=== PATIENT | female | born 1960 | race Caucasian/White ===

== ENCOUNTER 2018-01-29 11:47 | Emergency (ER) | payer BC, MEDICARE ==
[~2018-01-29] VITALS: Ht 157.5 cm; Wt 36.4 kg
[2018-01-29 12:38] VITALS: BP 145/90; PULSE 90; TEMP 98.1
== END 2018-01-29 12:38 | disposition home or self-care (01) ==
LOC: COL.ER 11:47
DX: Z44.9 Encounter for fitting and adjustment of unspecified external prosthetic device (principal)

== ENCOUNTER 2018-06-13 10:16 | Outpatient (RCR) | payer BC, MEDICARE ==
[2018-06-13 10:30] VITALS: BP 141/87; PULSE 86; TEMP 97.7
[2018-06-13] MEDS ORDERED: TYLENOL SU650 MG/SUP RC (12:09)
[2018-06-13] MEDS ORDERED: LIORESAL20 MG PO (12:09)
[2018-06-13] MEDS ORDERED: GENTLE LAXATIVE10 MG RC (12:10)
[2018-06-13] MEDS ORDERED: CALCIUM 600600 MG PO (12:11)
[2018-06-13] MEDS ORDERED: COLACE 100100 MG/CAP PO (12:12)
[2018-06-13] MEDS ORDERED: DEBROX OT (12:18)
[2018-06-13] MEDS ORDERED: GOOD SENSE ANTI-IT1% TP (12:20)
[2018-06-13] MEDS ORDERED: IMODIUM 2MG CAPS2 MG PO (12:21)
[2018-06-13] MEDS ORDERED: MERREM IV1 GM IV (12:22)
[2018-06-13] MEDS ORDERED: MAGNESIUM200 MG PO (12:22)
[2018-06-13] MEDS ORDERED: GOOD SENSE400 MG/5 M PO (12:24)
[2018-06-13] MEDS ORDERED: MYLANTA 150 ML150 M1 PO (12:25)
[2018-06-13] MEDS ORDERED: MULTI VITAMINS1 TAB PO (12:25)
[2018-06-13] MEDS ORDERED: ALEVE 220MG220 MG PO (12:26)
[2018-06-13] MEDS ORDERED: NORMAL SALINE F10 ML IV (12:27)
[2018-06-13] MEDS ORDERED: DILANTIN 100MG100 MG PO (12:28)
[2018-06-13] MEDS ORDERED: PROBIOTIC FORMU1 CAP PO (12:29)
[2018-06-13] MEDS ORDERED: SYNTHROID0.175 MG PO (12:30)
[2018-06-13] MEDS ORDERED: ULTRAM 50MG TAB50 MG PO (12:31)
[2018-06-13] MEDS ORDERED: TYLENOL 325MG325 MG PO (12:32)
[2018-06-13] MEDS ORDERED: B-121000 MCG PO (12:33)
[2018-06-13] MEDS ORDERED: EFFEXOR 75M75 MG/TAB PO (12:33)
== END 2018-06-13 12:30 ==
LOC: EUO 10:16
DX: Z45.2 Encounter for adjustment and management of vascular access device (principal); B96.5 Pseudomonas (aeruginosa) (mallei) (pseudomallei) as the cause of diseases classified elsewhere
CPT/HCPCS: C1751

== ENCOUNTER 2018-07-03 16:48 | Inpatient (IN) | payer BC, MEDICARE ==
[~2018-07-03] VITALS: Ht 157.5 cm; Wt 44.4 kg
[~2018-07-03 16:48] MED LIST: ALEVE LIQCAPS PO; B-121000 MCG PO; CALCIUM 600600 MG PO; COLACE 100100 MG/CAP PO; DEBROX OT; DILANTIN 100MG100 MG PO; EFFEXOR 75M75 MG/TAB PO; GENTLE LAXATIVE10 MG RC; GOOD SENSE ANTI-IT1% TP; GOOD SENSE400 MG/5 M PO; IMODIUM A-D2 MG PO; LIORESAL20 MG PO; MAGNESIUM200 MG PO; MERREM IV1 GM IV; MULTI VITAMINS1 TAB PO; MYLANTA 150 ML150 M1 PO; NORMAL SALINE F10 ML IV; PROBIOTIC FORMU1 CAP PO; SYNTHROID0.175 MG PO; TYLENOL 325MG325 MG PO; TYLENOL SU650 MG/SUP RC; ULTRAM 50MG TAB50 MG PO
[2018-07-03 17:26] LABS: BASO # 0.1 (0.0-0.2); BASO % 0.3 % (0.0-2.0); GRAN # 15.2 (1.4-6.5); GRAN % 89.9 % (42.2-75.2); LYMPH # 0.6 (1.2-3.4); LYMPH % 3.3 % (20.0-51.0); MEAN CELL VOLUME 90 fl (80.0-100.0); MEAN CORPUSCULAR HGB CONC 33 g/dl (33.0-37.0); MEAN PLATELET VOLUME 9.6 fl (7.4-10.4); MONO % 5.7 % (1.7-9.3); PLATELET COUNT 253 K/mm3 (130-400); RED BLOOD COUNT 3.34 M/mm3 (4.10-5.30); REDCELL DISTRIBUTION WIDTH-CV 14.4 % (11.5-14.5)
[2018-07-03 17:30] LABS: HEMOGLOBIN 9.8 g/dl (12.5-16.0); MEAN CORPUSCULAR HEMOGLOBIN 29 pg (27.0-31.0)
[2018-07-03 17:31] LABS: HEMATOCRIT 30.2 % (37.0-47.0)
[2018-07-03 17:39] LABS: ALBUMIN 3.8 gm/dL (3.5-5.0); BILIRUBIN,TOTAL 0.4 mg/dL (0.0-1.0); CALCIUM 9.6 mg/dL (8.4-10.2); CREATININE, serum 0.4 (0.52-1.25); POTASSIUM 4.2 mmol/L (3.4-5.0)
[2018-07-03 17:51] LABS: C-REACTIVE PROTEIN 16.9 mg/dL (0.0-0.9)
[2018-07-03 18:02] LABS: COLLECTION METHOD CATHETER
[2018-07-03 18:18] LABS: AMORPHOUS CRYSTAL Present /uL; MUCOUS Present /lpf; PH 7 (5-8); URINE APPEARANCE Cloudy; URINE BACTERIA None Seen /hpf; URINE BILIRUBIN Negative (NEGATIVE); URINE BLOOD 2+ (NEGATIVE); URINE COLOR Amber; URINE GLUCOSE Negative (NEGATIVE); URINE KETONE Negative (NEGATIVE); URINE LEUKOCYTE ESTERASE 3+ (NEGATIVE); URINE NITRATE Positive (NEGATIVE); URINE PROTEIN(semi-quant) 2+ (NEGATIVE); URINE RBC >50 /hpf; URINE UROBILINOGEN Negative (NEGATIVE)
[2018-07-03 19:27] LABS: PHENYTOIN (DILANTIN) 9.6 ug/mL (10.0-20.0)
[2018-07-03 19:38] LABS: PHOSPHOROUS 3.8 mg/dL (2.5-4.5)
--- NOTE | 2018-07-03 20:40 | NUR ---
Patient arrived to medical floor room 315 from ER.
[2018-07-03 20:45] VITALS: BP 98/57; PULSE 110; TEMP 98.7
[2018-07-03 21:10] VITALS: BP 98/57; PULSE 110; TEMP 98.7
[2018-07-03] MEDS ORDERED: AMOXICILLIN 8751 TAB PO (21:15)
[2018-07-03] MEDS ORDERED: DIFLUCAN150 MG PO (21:20)
[2018-07-03] MEDS ORDERED: IPRATROPIUM BROM3 M1 IH (21:24)
[2018-07-03] MEDS ORDERED: NYSTATIN POWDER15 GM TOP (21:28)
--- NOTE | 2018-07-03 22:00 | NUR ---
Medication reconciliation completed based off of paperwork from [facility]. Called and spoke with nurse at [facility] wroten house to ensure accuracy and get last date and time of all medications. Patient assessed around 2200. Denied having pain and discomfort. Alert and oriented x 4, and able to make needs known using soft touch call light. Voiced no needs or concerns. Suprapubic catheter present, draining cloudy, yellow urine. Pressure ulcer to left buttock, dressing CDI. Encouraged to elevate HOB due to occasional cough, but declined. Peripheral IV to left hand.
[2018-07-03 23:48] VITALS: BP 118/65; PULSE 121; TEMP 101.7
[2018-07-04 04:00] VITALS: BP 99/57; PULSE 102; TEMP 98.9
--- NOTE | 2018-07-04 04:59 | NUR ---
Patient has been resting in bed with eyes closed most of the night since arriving from ER. Patient had a temperature of 101.7. Order received for PRN APAP, and was given it around 0030. Temperature has decreased to 98.9. Patient complained of pain around 0230, and was given PRN Ultram, which was effective. NS running at 75 ml/hr to peripheral IV to left hand. Suprapubic catheter patent, and draining cloudy yellow urine via dependent drainage. Patient seems to be having difficulty swallowing, even with HOB elevated 90 degrees. Spoke with STRAND GALVANIZER, and order received for ST to eval and treat. Staff continues to provide repositioning every 2 hours. Voices no other needs or concerns at this time. Resting in bed with eyes closed at this time. Soft-touch call light is next to head as requested, and is able to use call light successfully where it is placed. Order for SCDs. Patient does not want to wear SCDs at this time. Patient has on prevalon heel protectors from [facility].
[2018-07-04 07:22] LABS: BASO % 0.3 % (0.0-2.0); EOS # 0.1 (0.0-0.7); EOS % 1.4 % (0-4.0); GRAN # 8.7 (1.4-6.5); LYMPH # 0.6 (1.2-3.4); LYMPH % 5.3 % (20.0-51.0); MEAN CELL VOLUME 93 fl (80.0-100.0); MEAN CORPUSCULAR HGB CONC 31 g/dl (33.0-37.0); MONO # 0.9 (0.1-0.6); MONO % 8.5 % (1.7-9.3); PLATELET COUNT 202 K/mm3 (130-400); RED BLOOD COUNT 2.78 M/mm3 (4.10-5.30); REDCELL DISTRIBUTION WIDTH-CV 14.4 % (11.5-14.5)
[2018-07-04 07:29] LABS: HEMATOCRIT 25.9 % (37.0-47.0); HEMOGLOBIN 8.1 g/dl (12.5-16.0); MEAN CORPUSCULAR HEMOGLOBIN 29 pg (27.0-31.0)
[2018-07-04 07:34] LABS: CALCIUM 8.5 mg/dL (8.4-10.2); CREATININE, serum 0.46 (0.52-1.25); POTASSIUM 3.6 mmol/L (3.4-5.0)
[2018-07-04 08:04] LABS: TSH w REFLEX 0.587 uIU/mL (0.465-4.680)
[2018-07-04 08:18] VITALS: BP 153/96; PULSE 99; TEMP 98.2
--- NOTE | 2018-07-04 08:30 | NUR ---
Assessment complete. Pt laying in bed, A&O x 3. Breath sounds CTAB. BS active x 4. Pt reports pain to left hip 10 out of 10 on pain scale, around the area of the pressure ulcer to left buttock. Ulcer stage II, dressing with slight drainage noted. IVF's infusing per orders through left hand site without s/s of complications. No further needs reported. Call light in reach.
--- NOTE | 2018-07-04 09:33 | NUR ---
Initial visit; Patient in distress and thanked Data Entry for keeping her in her prayers.
--- NOTE | 2018-07-04 10:15 | NUR ---
SW attended clinical rounds to discuss discharge planning. Patient recently moved from [place] to [place] and is currently staying in skilled nursing care at [facility]. Patient plans to return there when she is discharged. Patient;s mother signed choice form. Patient is seen by Dr Edgar Alvarez at [facility] and they also provide all medications. Patient is non ambulatory. Patient does have advanced directives and SW request copies from [facility]. SW will fax updates to [facility] as well.
--- NOTE | 2018-07-04 10:15 | NUR ---
Dressing to left buttock ulcer removed and new dressing placed with square Aquacell pad. Pt repositioned and pillows placed under both hips. PRN morphine administered at lowest dose of range per pt's request and report of pain at 10 out of 10 on pain scale.
--- NOTE | 2018-07-04 10:35 | NUR ---
Second milligram of Morphine administered d/t pt's pain not being relieved with lower dose.
[2018-07-04 12:30] VITALS: BP 141/86; PULSE 107; TEMP 97.9
[2018-07-04 16:38] VITALS: BP 129/70; PULSE 69; TEMP 99.1
--- NOTE | 2018-07-04 19:04 | NUR ---
Report with SHAMA Hudson. Pt sitting up in bed eating dinner with assistance from her mom, denies needs at this time. Call light in reach.
[2018-07-04 19:14] VITALS: BP 152/84; PULSE 107; TEMP 98.2
--- NOTE | 2018-07-04 20:03 | NUR ---
turned pt at this time. 6/10 pain reported in hips- prn pain meds given
--- NOTE | 2018-07-04 20:30 | NUR ---
pt resting in bed A+Ox4. with family at bedside. reports 07/15 pain- prn meds given. truning Q2 and on request. sacral region covered with dressing- DCI. barrier cream applied. pt had urine leakage- changed breif. pt on RA. heels floated. no needs at this time. call light in reach
--- NOTE | 2018-07-04 20:54 | NUR ---
REPOSITIONED PT AT THIS TIME.
--- NOTE | 2018-07-04 23:08 | NUR ---
pt cried during turning and reposistioning. prn meds given on request. pt currently sleeping. report given to SHAMA
--- NOTE | 2018-07-04 23:45 | NUR ---
ASSUMED CARE FOR THIS PT FROM NURSE MEJIAS, PT RESTING IN BED COMFORTABLY, SLOW SPEECH AND SLURRED AT TIMES DUE TO END STAGE MS. PT REQUESTING TO REST AT THIS TIME, WILL CONTINUE TO MONITOR.
[2018-07-05] VITALS (7 sets, daily range): BP systolic 103–155; BP diastolic 65–95; PULSE 58–941; TEMP 97.4–98.1
--- NOTE | 2018-07-05 06:32 | NUR ---
PT'S HGB DROP FROM 11.5 TO 9.5, WILL PASS IT ALONG IN REPODRT TO DAY SHIFT NURSE.
[2018-07-05 07:03] LABS: BASO % 0.3 % (0.0-2.0); EOS # 0.6 (0.0-0.7); EOS % 9.2 % (0-4.0); GRAN # 4.9 (1.4-6.5); GRAN % 70.1 % (42.2-75.2); LYMPH # 0.6 (1.2-3.4); LYMPH % 8.8 % (20.0-51.0); MEAN CELL VOLUME 93 fl (80.0-100.0); MEAN CORPUSCULAR HGB CONC 32 g/dl (33.0-37.0); MEAN PLATELET VOLUME 9.8 fl (7.4-10.4); MONO # 0.8 (0.1-0.6); MONO % 11.3 % (1.7-9.3); PLATELET COUNT 203 K/mm3 (130-400); RED BLOOD COUNT 2.65 M/mm3 (4.10-5.30); REDCELL DISTRIBUTION WIDTH-CV 14.4 % (11.5-14.5)
[2018-07-05 07:14] LABS: HEMATOCRIT 24.7 % (37.0-47.0); HEMOGLOBIN 7.8 g/dl (12.5-16.0); MEAN CORPUSCULAR HEMOGLOBIN 29 pg (27.0-31.0)
[2018-07-05 07:26] LABS: CALCIUM 8.6 mg/dL (8.4-10.2); CREATININE, serum 0.37 (0.52-1.25); POTASSIUM 3.9 mmol/L (3.4-5.0)
--- NOTE | 2018-07-05 07:37 | NUR ---
Report from Carley SESAY.
[2018-07-05 08:38] LABS: RETIC # 0.06 M/mm3 (0.02-0.16); RETIC % 2.4 % (0.5-3.52)
--- NOTE | 2018-07-05 09:49 | NUR ---
ASSISTED PT TO SITT UP IN BED WITH PILLOW BEHIND HEAD. PT HARD TO UNDERSTAND WITH ADVANCED MS. POSITIONED FOR COMFORT. ORDERED TOAST PER PT REQUEST. SPEECH THERAPY IN ROOM ASSISTING WITH EATING AT THIS TIME.
--- NOTE | 2018-07-05 10:23 | NUR ---
SW attended clinical rounds. Patient will likely be here through the weekend. SW will fax updates to [facility]. [facility] Care Nurse will also meet with patient.
--- NOTE | 2018-07-05 10:37 | NUR ---
CONSULTED DR IVY RECIEVED INSTRUCTIONS ON REPLACING SUPRAPUBIC CATHETER.
--- NOTE | 2018-07-05 12:11 | NUR ---
Initial visit; Patient, her mother and friend welcomed Bog Worker and thanked her for looking in on Kary again and keeping her in Bog Worker's prayers.
--- NOTE | 2018-07-05 12:28 | NUR ---
Met with pt and then pt's mother. Pt is very frustrated with her situation but does not see a way out. She is able to speak for short time, a few words, and then looses her breath support. She did become tearful and advise this process description writer that she does not want to live 20 more years like this. Family meeting is set for July 08 at 2pm.
--- NOTE | 2018-07-05 14:41 | NUR ---
ULTRA SOUND RETURNED TO [employer] IMAGES.
--- NOTE | 2018-07-05 14:51 | NUR ---
Family has now requested to cancel family meeting on Sunday as per mother, they want everything done for her and that is her wish also. This information was relayed to Dr Jean and he will still go ahead, as requested earlier, and talk with , Ed, by phone at the number the family provided.
--- NOTE | 2018-07-05 16:30 | NUR ---
SUPRAPUBIC CATHETER CHANGED REPLACED WITH 18 FR INSTILLED 5 MLS NS IN BALLOON. ASSISTED BY ELLIOT SESAY. PT TOLERATED WELL.
--- NOTE | 2018-07-05 19:30 | NUR ---
pt reposistioned at this time. soft touch call light in reach. mother at bedside.
--- NOTE | 2018-07-05 20:17 | NUR ---
pt resting in bed with mother at bedside. pt crying and reporting pain 10/10 in hips. reposistioned at this time. hopson draining well- yellow urine with sediment noted. heel protectors on. IV flused well, no redness, no swelling. pt on room air. shift assessment complete. no SOA. no needs at this time. call light in reach.
--- NOTE | 2018-07-06 02:24 | NUR ---
REPOSISTIONING Q2H AND UPON REQUEST. DENIED PAIN MEDS AT THIS TIME. BRIEF DRY BUT CHANGED- PROVIDED ELLIE CARE. ALVAREZ DRANING FREELY, NO KINKS. SECURED TO LEG. HEEL PROTECTORS ON. SACREAL STAGE II ULCER DRESSING CHANGED- DRESSING WAS SATURATED. BARRIER CREAM APPLIED TO THE REST OF THE BUTTOX- RED AND FLACKY. SOFT TOUCH CALL LIGHT IN REACH. REPORTS NO NEEDS AT THIS TIEM
--- NOTE | 2018-07-06 05:35 | NUR ---
PT HAD UNEVENTFUL NIGHT. REPORTED PAIN- PRN MEDS GIVEN AND REPOSISTIONED EVERY HOUR AND UPON REQUEST. ALVAREZ DRAINING FREELY, NO KINKS- SECURED TO LEG. YELLOW URINE WITH SEDIMENT NOTED. STAGE II ULCER ON L SACREAL REGION. CHANGED DRESSING. PT ON ROOM AIR. VITALS STABLE. IV FLUSHES WELL NO REDENSS NO SWELLING. PT TOLERATED PO FLUIDS AND ORAL INTAKE. HEELS IN PROTECTORS. PILLOWS UNDER HIP AND REPOSITIONED Q2H. NO NEEDS AT THIS TIME. CALL LIGHT IN REACH
[2018-07-06 06:57] LABS: BASO % 0.5 % (0.0-2.0); EOS # 0.6 (0.0-0.7); EOS % 9.6 % (0-4.0); GRAN % 69.7 % (42.2-75.2); LYMPH # 0.6 (1.2-3.4); LYMPH % 9.8 % (20.0-51.0); MEAN CELL VOLUME 92 fl (80.0-100.0); MEAN CORPUSCULAR HGB CONC 32 g/dl (33.0-37.0); MEAN PLATELET VOLUME 9.4 fl (7.4-10.4); MONO # 0.6 (0.1-0.6); MONO % 10.1 % (1.7-9.3); PLATELET COUNT 226 K/mm3 (130-400); RED BLOOD COUNT 2.77 M/mm3 (4.10-5.30); REDCELL DISTRIBUTION WIDTH-CV 14.2 % (11.5-14.5)
--- NOTE | 2018-07-06 07:03 | NUR ---
report given to SHAMA Goldberg
[2018-07-06 07:04] LABS: HEMATOCRIT 25.6 % (37.0-47.0); HEMOGLOBIN 8.1 g/dl (12.5-16.0); MEAN CORPUSCULAR HEMOGLOBIN 29 pg (27.0-31.0)
[2018-07-06 07:08] LABS: CALCIUM 8.7 mg/dL (8.4-10.2); CREATININE, serum 0.35 (0.52-1.25)
[2018-07-06 07:15] LABS: PRE ALBUMIN 13.5 mg/dL (17.6-36.0)
--- NOTE | 2018-07-06 07:31 | NUR ---
REPORT RECEIVED FROM SHAMA FRANK. PT SLEEPING SOUNDLY IN BED. CALL LIGHT IN REACH.
[2018-07-06 08:01] VITALS: BP 140/78; PULSE 81; TEMP 97.4
--- NOTE | 2018-07-06 08:46 | NUR ---
Pt resting in bed and c/o pain. Pt requested pain med. Call light in reach.
--- NOTE | 2018-07-06 10:23 | NUR ---
Pt c/o pain and asked for pain med. Pt and family educated fast acting IV pain med vs long acting PO pain med. Pt and family agreed to try both to control her pain better. Call light in reach. Pt's mom's visiting in .
--- NOTE | 2018-07-06 11:06 | NUR ---
Visit attempted and pt fell asleep. Call light in reach.
[2018-07-06 12:35] VITALS: BP 114/69; PULSE 83; TEMP 97.6
--- NOTE | 2018-07-06 14:24 | NUR ---
PT C/O L HIP PAIN. PT REPOSITIONED AND PAIN MEDS ADMINISTERED, CALL LIGHT IN REACH
[2018-07-06 16:09] VITALS: BP 113/67; PULSE 78; TEMP 97.5
--- NOTE | 2018-07-06 16:42 | NUR ---
Pt watching a movie with pt's visitor. Pt states pain "manageablea" Call light in reach.
[2018-07-06 17:25] VITALS: TEMP 97.8
--- NOTE | 2018-07-06 17:42 | NUR ---
pt's dressing on her bottom changed after washed with saline water. Pt c/o pain and asked for pain med. Call light in reach.
--- NOTE | 2018-07-06 19:07 | NUR ---
Report given to SHAMA Hudson. Pt sleeping in bed. Call light in reach.
[2018-07-06 19:09] VITALS: BP 136/80; PULSE 84; TEMP 97.9
--- NOTE | 2018-07-06 20:00 | NUR ---
pt resting in bed A+Ox4. reports minimal pain at this time. repositioning Q2H and on request. heel protectors on. sacreal region has a stage II ulcer. dressing dci at this time. top of left foot has a pea size closed sore. iv flushes well, no redness, no swelling. pt on room air. hopson draining freely, no kinks. yellow urine with sediment noted. no needs at this time. call light in reach
--- NOTE | 2018-07-06 20:00 | NUR ---
REPOSITIONED AT THIS TIME
--- NOTE | 2018-07-06 21:39 | NUR ---
REFUSED TO BE REPOSISTIONED AT THIS TIME
[2018-07-06] MEDS ORDERED: MAG-OX 400400 MG/TAB PO (22:04)
[2018-07-06 22:59] VITALS: BP 123/72; PULSE 83; TEMP 98.4
--- NOTE | 2018-07-07 01:53 | NUR ---
pt has had some pain during night, prn meds given. repositioning Q2h and on request. has refused to be reposistioned at time. iv flushes well, no redness, no swelling. no needs at this time- soft touch call light in reach
[2018-07-07 03:54] VITALS: BP 127/79; PULSE 89; TEMP 97.9
--- NOTE | 2018-07-07 04:41 | NUR ---
pt refused to be turned at 0400. reports, "it hurts too bad" offered pain meds- pt refused.
--- NOTE | 2018-07-07 05:37 | NUR ---
PT HAD AN UNEVENTFUL NIGHT. PAIN MEDS GIVEN THROUGOUT NIGHT UPON REQUEST, PT WAS TURNED q2H UNLESS REFUSED. PRESSURE ULCER STAGE II DRESSING DCI AT BEGINNING OF SHIFT. HEEL PROTECTORS ON. SCD REFUSED. TOP OF LEFT FOOT HAS A CLOSED PEA SIZE SORE. PT HAS SOFT TOUCH CALL LIGHT IN REACH. NO NEED AT THIS TIME.
--- NOTE | 2018-07-07 07:23 | NUR ---
REPORT GIVEN TO SHAMA PAUL. PT SLEEPING. REFUSED TO BE TURNED AT THIS TIME.
[2018-07-07 07:48] VITALS: BP 121/68; PULSE 99; TEMP 98.2
--- NOTE | 2018-07-07 08:30 | NUR ---
Assessment complete. Pt resting in bed, A&O x 3. Breath sounds CTAB. BS active x 4. Suprapubic catheter in place, site without s/s of complications. Saline lock IV to left hand without s/s of complications. Stage II ulcer to left buttock with dressing CDI, pillows in place under pt and heels floated. Call light in reach.
[2018-07-07 11:42] VITALS: BP 110/70; PULSE 97; TEMP 98.5
[2018-07-07 15:32] VITALS: BP 116/76; PULSE 96; TEMP 98.6
--- NOTE | 2018-07-07 18:27 | NUR ---
Pt resting in bed, sleeping but arouses easily, denies need for pain medication at this time. Pt requested PRN pain medication x 1 dose this shift. No further needs reported. Call light in reach.
[2018-07-07 19:44] VITALS: BP 146/85; PULSE 80; TEMP 97.8
--- NOTE | 2018-07-07 20:20 | NUR ---
Shift assessment complete. Pt resting in bed, sleepy but easy to wake, a&o, cooperative c cares. Pt c/o pain to hips/buttock, rated "9/10", provided c PRN Campbell per pt req, will use MS per request if pain is not relieved. Pt denies other c/o. INT patent. SP cath noted, draining hazy yellow urine s complication. Pt repositioned et heels floated. Pt denies further needs at this time. Call light in reach, bed alarm on. Will monitor.
[2018-07-07 23:53] VITALS: BP 109/62; PULSE 100; TEMP 98.4
[2018-07-08] VITALS (10 sets, daily range): BP systolic 97–149; BP diastolic 59–91; PULSE 83–127; TEMP 97.6–100.2; O2SAT 96–99
--- NOTE | 2018-07-08 06:04 | NUR ---
Pt resting in bed, condition unchanged. Pt has rested well int this shift. Continued c/o pain to "hips" et buttock ulcer. PRN norco et morphine admin alternating per pt request et continued c/o pain average "06/11/09". Pt has otherwise rested c few needs. No needs at this time. Soft touch call light in reach, bed alarm on.
--- NOTE | 2018-07-08 10:41 | NUR ---
Assessment complete.patient awake,a/ox3.LSCTA.breathing even and unlabored.O2 84% on RA.oxygen administered at 3L/NC and patient stats at 88%.temp 100.2.HR 130s.Doctor Miranda notified.stat CXR,LAbs,ABGs and EKG obtained.patient to be transfered to the ICU.patient's mother at bedside and updated of acute changes.will continue to monitor.call light in reach
--- NOTE | 2018-07-08 11:07 | NUR ---
SW attended clinical rounds. The patient is to transfer down to ICU. LYLE contacted and will fax updates to Miri at [facility]. SW to continue to follow.
[2018-07-08 11:34] LABS: ARTERIAL BLD GAS O2 SATURATION 89.3 % (92-100); ARTERIAL BLD GAS TCO2 CT 29.7; ARTERIAL BLOOD GAS BASE EXCESS 3.8 (-2-2); ARTERIAL BLOOD GAS HCO3 28.4 meq/L (22-26); ARTERIAL BLOOD GAS PO2 56.4 mmHg (80-100); ARTERIAL BLOOD GAS pH 7.44 (7.35-7.45)
--- NOTE | 2018-07-08 11:56 | NUR ---
REPORT RECEIVED FROM DUANE SESAY ON MEDICAL FLOOR.
--- NOTE | 2018-07-08 12:30 | NUR ---
PT TRANSFERRED TO ICU VIA BED TO ICU ROOM 1 BY DUANE SESAY AND JAYA ISLAS. PT AWAKE AND ALERT. PT HAS LIMITED COMMUNICATION D/T ILLNESS AND HX OF ADVANCED MS. PT IN SEVERE PAIN AND IS CRYING STATING SHE IS HAVING SEVERE BACK PAIN. PT'S IV UNINTENTIONALLY CAME OUT UPON TRANSFER TO ICU BED. 22G PERIPHERAL IV INSERTED TO LEFT WRIST FOR PAIN MANAGEMENT. CALLED DR MCCANN TO INQUIRE ABOUT INSERTING PICC LINE D/T POSSIBLE SEPSIS. DR MCCANN IN AGREEANCE OF NECESSITY FOR PICC PLACEMENT. JERED FELTON NURSE CALLED AND NOTIFIED.
--- NOTE | 2018-07-08 12:35 | NUR ---
PT PLACED ON 8L NC UPON TRANSFER TO ICU BED D/T SATURATION OF 82% ON ROOM AIR.
--- NOTE | 2018-07-08 12:38 | NUR ---
REPORT GIVEN TO SHAMA TREJO.PT TRANSPORTED TO ICU ROOM 1 BY BED.FAMILY IN WAITING ROOM.
[2018-07-08 12:55] LABS: BASO # 0.1 (0.0-0.2); BASO % 0.4 % (0.0-2.0); EOS # 0.1 (0.0-0.7); EOS % 0.5 % (0-4.0); GRAN # 18.2 (1.4-6.5); GRAN % 89.8 % (42.2-75.2); LYMPH # 0.7 (1.2-3.4); LYMPH % 3.6 % (20.0-51.0); MEAN CELL VOLUME 91 fl (80.0-100.0); MEAN CORPUSCULAR HGB CONC 32 g/dl (33.0-37.0); MEAN PLATELET VOLUME 8.6 fl (7.4-10.4); MONO % 5.1 % (1.7-9.3)
[2018-07-08 13:06] LABS: HEMOGLOBIN 9.4 g/dl (12.5-16.0); MEAN CORPUSCULAR HEMOGLOBIN 29 pg (27.0-31.0); PLATELET COUNT 368 K/mm3 (130-400)
--- NOTE | 2018-07-08 13:10 | NUR ---
CALLED DR MCCANN REGARDING PT'S WBC COUNT RETURNED AT 10.2. PROVIDER WOULD LIKE PT ON HIGH FLOW NC. RT CALLED AND NOTIFIED.
[2018-07-08 13:14] LABS: ALANINE AMINOTRANSFERASE < 6 U/L (9-52); ALBUMIN 3.3 gm/dL (3.5-5.0); ALKALINE PHOSPHATASE 119 U/L (50-136); ANION GAP 9 mmol/L (7-16); AST,SGOT 34 U/L (15-37); BILIRUBIN,TOTAL 0.4 mg/dL (0.0-1.0); BLOOD UREA NITROGEN 19 mg/dL (7-17); CALCIUM 9.2 mg/dL (8.4-10.2); CARBON DIOXIDE 31 mmol/L (22-30); CHLORIDE 98 mmol/L (98-107); CREATININE, serum 0.35 (0.52-1.25); GLUCOSE 117 mg/dL (74-106); POTASSIUM 3.9 mmol/L (3.4-5.0); SODIUM 138 mmol/L (137-145); TOTAL PROTEIN 7.2 gm/dL (6.4-8.2)
--- NOTE | 2018-07-08 16:00 | NUR ---
Shift assessment complete at this time. Pt denies pain or any discomfort after repositioning to right side. Vitals stable at this time. Bed in low and locked position, will continue to monitor.
--- NOTE | 2018-07-08 19:12 | NUR ---
Bedside report given to SHAMA Corcoran.
--- NOTE | 2018-07-08 19:35 | NUR ---
Patient assessment completed and charted at this time, please see documentation for details. Patient resting in bed, able to follow simple commands, very weak. States she has discomfort, repositioned and she asked for pain medication. No family at bedside, will continue to monitor.
[2018-07-09] VITALS (845 sets, daily range): BP systolic 92–108; BP diastolic 56–71; PULSE 80–99; TEMP 97.5–97.9; O2SAT 91–100
[2018-07-09 05:10] LABS: MEAN CELL VOLUME 93 fl (80.0-100.0); MEAN CORPUSCULAR HGB CONC 32 g/dl (33.0-37.0); MEAN PLATELET VOLUME 9.1 fl (7.4-10.4); RED BLOOD COUNT 2.39 M/mm3 (4.10-5.30); REDCELL DISTRIBUTION WIDTH-CV 13.9 % (11.5-14.5)
[2018-07-09 05:16] LABS: HEMATOCRIT 22.2 % (37.0-47.0); MEAN CORPUSCULAR HEMOGLOBIN 29 pg (27.0-31.0); PLATELET COUNT 252 K/mm3 (130-400)
[2018-07-09 05:24] LABS: ALBUMIN 2.7 gm/dL (3.5-5.0); BILIRUBIN,TOTAL 0.1 mg/dL (0.0-1.0); CALCIUM 8.6 mg/dL (8.4-10.2); CREATININE, serum 0.39 (0.52-1.25); POTASSIUM 4.1 mmol/L (3.4-5.0); TOTAL PROTEIN 6.2 gm/dL (6.4-8.2)
[2018-07-09 05:45] LABS: BAND 43 % (0-10); HYPOCHROMIA 1+; LYMPHOCYTE 3 % (20.0-51.0); METAMYELOCYTE 1 % (0-0); NEUTROPHILS 52 % (42.0-75.2); PLATELET ESTIMATE NORMAL (NORMAL)
--- NOTE | 2018-07-09 07:00 | NUR ---
Bedside report received from SHAMA Corcoran patient repositioned, cleaned and dressing changed to coccyx. Tap call light in place.
--- NOTE | 2018-07-09 08:00 | NUR ---
Assessment complete, bilateral heel protectors in place, AM care performed at this time, tap call light in place by her face.
--- NOTE | 2018-07-09 09:45 | NUR ---
PT in room, working with patient.
--- NOTE | 2018-07-09 09:55 | NUR ---
Follow-up visit; Patient aware of School Psychological Examiner looking in on her. Request for nurse. School Psychological Examiner reported request to nurse.
--- NOTE | 2018-07-09 10:16 | NUR ---
Speech therapy in room working with patient.
--- NOTE | 2018-07-09 12:46 | NUR ---
Patient repositioned for comfort, at bedside. Patient using tap call light.
--- NOTE | 2018-07-09 16:23 | NUR ---
Patient refused turn at this times, states "I am comfortable the way I am." Family at bedside.
--- NOTE | 2018-07-09 19:20 | NUR ---
Assisted to reposition with other staff member. Patient's speech is difficult to understand. Speech is slow and unclear. Need to ask patient frequently to repeat herself. Complaining of pain to the left hip. Attempted to place her in a more comfortable position. Patient also noted to become emotional easily. Appears to be tearful when staff repositions her and when staff must ask her to repeat herself. Will administere PRN pain medication. Addressed all concerns with her before leaving room.
--- NOTE | 2018-07-09 19:37 | NUR ---
Bedside report given to SHAMA Phillips, patient repositioned for comfort.
--- NOTE | 2018-07-09 20:15 | NUR ---
02 90-91% on RA. Placed on 2L NC.
--- NOTE | 2018-07-09 22:00 | NUR ---
Assisted with repositioning and with a bed bath. Dressing to pressure ulcer on coccyx changed at this time. Ulcer is half dollar sized with a moist yellowish wound bed. Adjacent to this on the left buttock is a small reddened abrasion which measures approximately 0.5 cm X 2 cm. Skin around coccyx is reddened and dry and flaky. Will continue with frequent repositioning Q 2hr and as requested per patient.
[2018-07-10] VITALS (48 sets, daily range): BP systolic 90–152; BP diastolic 56–79; PULSE 84–114; TEMP 97.3–98.7; O2SAT 96–100
[2018-07-10 05:19] LABS: BASO % 0.3 % (0.0-2.0); EOS # 0.2 (0.0-0.7); GRAN # 8.7 (1.4-6.5); GRAN % 78.9 % (42.2-75.2); LYMPH # 0.8 (1.2-3.4); LYMPH % 7.1 % (20.0-51.0); MEAN CELL VOLUME 92 fl (80.0-100.0); MEAN CORPUSCULAR HGB CONC 32 g/dl (33.0-37.0); MEAN PLATELET VOLUME 9.2 fl (7.4-10.4); MONO % 9.2 % (1.7-9.3); PLATELET COUNT 314 K/mm3 (130-400); RED BLOOD COUNT 2.25 M/mm3 (4.10-5.30); REDCELL DISTRIBUTION WIDTH-CV 14.4 % (11.5-14.5)
[2018-07-10 05:21] LABS: HEMATOCRIT 20.6 % (37.0-47.0); HEMOGLOBIN 6.5 g/dl (12.5-16.0); MEAN CORPUSCULAR HEMOGLOBIN 29 pg (27.0-31.0)
[2018-07-10 05:31] LABS: CALCIUM 8.3 mg/dL (8.4-10.2); CREATININE, serum 0.37 (0.52-1.25); MAGNESIUM 2.1 mg/dL (1.6-2.3); POTASSIUM 3.6 mmol/L (3.4-5.0)
--- NOTE | 2018-07-10 05:31 | NUR ---
Notified [facility] of patient's critical HGB results. No obvious signs of bleeding noted. Awaiting further orders.
--- NOTE | 2018-07-10 07:45 | NUR ---
Report received from SHAMA Phillips.
--- NOTE | 2018-07-10 08:15 | NUR ---
Assessment completed. Pt watching tv, A/Ox3. Pt c/o pain around hip area. Repositioned pt for comfort. Total assist required for meals. Pt HOB greater than 45 degrees. Tolerating meal, no signs of aspiration. Discussed plan of care with pt r/t blood transfusion for low hgb. Pt verbalized understanding. VSS. Will monitor.
--- NOTE | 2018-07-10 08:33 | NUR ---
PT REFUSING TREATMENT AFTER JUST A COUPLE MINUTES. TREATMENT STOPPED AT THIS TIME. NO DISTRESS NOTED. PT ENCOURAGED TO CALL IF TREATMENT IS NEEDED.
--- NOTE | 2018-07-10 09:10 | NUR ---
Physical therapy at bedside working with pt.
--- NOTE | 2018-07-10 09:35 | NUR ---
Blood transfusion started after pre vitals taken and verified. blood transfusing through purple port in right upper arm PICC.
--- NOTE | 2018-07-10 09:46 | NUR ---
SW attended clinical rounds. Patient will move to the medical floor today. SW will fax updates to [facility].
--- NOTE | 2018-07-10 09:50 | NUR ---
No changes with vital signs. Pt watching tv at this time. Blood transfusion rate increased. VSS.
--- NOTE | 2018-07-10 10:06 | NUR ---
Pt's at bedside. Updated on pt status. Discussed plan of care r/t blood tranfusion. verbalized understanding.
--- NOTE | 2018-07-10 10:20 | NUR ---
Speech therapy at bedside working with pt.
--- NOTE | 2018-07-10 10:45 | NUR ---
Repositioned pt for comfort. Bilat arms have petechiae present. Notified KAYCE Marcus with Dr Jean. Blood transfusion on hold.
--- NOTE | 2018-07-10 10:55 | NUR ---
Dr Jean okay with blood tranfusion still infusing. Dr Jean will order IV benadryl for pt.
--- NOTE | 2018-07-10 11:05 | NUR ---
Report given to Medical floor RN, Cat.
--- NOTE | 2018-07-10 11:46 | NUR ---
Pt transferred to medical floor room 307 via bed. Sarah, medical RN, notified of blood transfusion complete and voicemail left on pt's 's phone of pt transfer. TV turned on for pt and call light in reach by pt's chin.
--- NOTE | 2018-07-10 11:50 | NUR ---
Pt arrived to floor at this time via bed with ICU staff. Resting in bed, placed air mattress on bed and has pillow below knees, under both hips, and arms are also resting on pillows. Heels are floating in boots. SCDs in place. PICC to GILDA. INT to LW. Pt lung sounds diminished. Stage 3 to sacrem. Petechial rash to forearms bilaterally, per ICU nurse this is a new development from blood transfusion. Family has been in to room but not in room at this time. Ordered lunch for patient. Call light on R cheek as she is unable to mobilize any of her extremeties. Will continue to monitor.
[2018-07-10 13:26] LABS: HEMOGLOBIN 8.7 g/dl (12.5-16.0)
[2018-07-10 13:27] LABS: HEMATOCRIT 26.5 % (37.0-47.0)
--- NOTE | 2018-07-10 15:03 | NUR ---
PT REFUSED SVN TX OF 2 MINUTES. STOPPED AT THIS TIME. NO DISTRESS NOTED
--- NOTE | 2018-07-10 18:25 | NUR ---
Pt resting in bed. Fed supper to her, she ate a portion of the meal well, but tires easily. IVF to PICC in GILDA. Pillows and air mattress for comfort. Denies needs. Olson draining clear yellow urine. Call light in reach, will give bedside shift report to nightshift nurse who will resume care.
--- NOTE | 2018-07-10 19:51 | NUR ---
MOTHER OF PT THOUGHT THAT PT LOOKED PALE. CAME INTO ROOM RIGHT-AWAY AND PT IS FAIR SKIN THAT LOOKS PINK IN COLOR. TAKEN VS AND THEY ARE WNL. PT ADVISES THAT SHE FEELS FINE. CALL LIGHT WITHIN REACH.
--- NOTE | 2018-07-10 21:15 | NUR ---
PT IN BED AND FAMILY IN ROOM WITH PT. FAMILY FEELS THAT PT CHOKES WHEN THEY GIVE HER A DRINK OF WATER. TRIED THICKEN LIQUIDS AND PT DOES NOT LIKE THICKEN LIQUIDS. TRIED THIN LIQUIDS USING A SPOON AND PT DID FINE. GAVE PT SOME OF HER ENSURE AND PT DRANK IT FINE. PT DID NOT CHOKE EITHER TIME WHEN I GAVE HER LIQUIDS TO DRINK. ADVISED FAMILY MAYBE THEY ARE GIVING HER TOO MUCH AT ONE TIME. FAMILY ADVISED THAT THEY FEEL BETTER IF THE STAFF GIVES HER SOMETHING TO DRINK AND EAT. GAVE PT MORPHINE FOR PAIN RATED A 7/10 THAT WAS ACHING IN HER SCAPULA. FAMILY THOUGHT PT LOOKED FLUSHED. PT HAD PINK CHEEKS AND PETECHIAE ON BILATERAL UPPER EXTREMITIES. ALSO, BOTH HANDS HAD SOME EDEMA. NO FURTHER NEEDS AT THIS TIME, CALL LIGHT WITHIN REACH.
--- NOTE | 2018-07-11 02:33 | NUR ---
CHECKED ON PT AND PT REFUSES ANY THING TO DRINK OR PAIN MEDICATION. PT ADVISES PAIN AT 4/10 BUT SHE DOES NOT NEED ANY PAIN MEDICATION. PT REPOSITIONED EVERY 2 HOURS. NO NEEDS AT THIS TIME. CALL LIGHT WITHIN REACH.
[2018-07-11 03:00] VITALS: BP 151/74; PULSE 101; TEMP 98.2
--- NOTE | 2018-07-11 05:09 | NUR ---
PT SLEEPING/RESTING AT THIS TIME. PT HAD C/O LEFT SCAPULA PAIN RATED AT 7/10 THAT IS ACHING, GAVE HER MORPHINE AND REPOSITIONED TO HELP RELIEVE PAIN. TRIED A WARM BLANKET BUT PT FELT THAT IT WAS TOO WARM FOR HER AND DID NOT WANT IT. THEREFORE, REMOVED WARM BLANKET RIGHT AWAY. REPOSITIONED PT SEVERAL TIMES BEFORE SHE WAS FINALLY COMFORTABLE ENOUGH TO REST. PT HAS CALL LIGHT WITHIN REACH.
[2018-07-11 06:03] LABS: MEAN CELL VOLUME 92 fl (80.0-100.0); MEAN CORPUSCULAR HGB CONC 32 g/dl (33.0-37.0); MEAN PLATELET VOLUME 8.9 fl (7.4-10.4); PLATELET COUNT 389 K/mm3 (130-400); RED BLOOD COUNT 2.98 M/mm3 (4.10-5.30); REDCELL DISTRIBUTION WIDTH-CV 14.8 % (11.5-14.5)
[2018-07-11 06:07] LABS: HEMATOCRIT 27.4 % (37.0-47.0); HEMOGLOBIN 8.7 g/dl (12.5-16.0); MEAN CORPUSCULAR HEMOGLOBIN 29 pg (27.0-31.0)
[2018-07-11 06:19] LABS: CALCIUM 8.2 mg/dL (8.4-10.2); CREATININE, serum 0.35 (0.52-1.25); POTASSIUM 3.3 mmol/L (3.4-5.0)
[2018-07-11 06:53] LABS: EOSINOPHIL 2 % (0-4); LYMPHOCYTE 5 % (20.0-51.0); NEUTROPHILS 84 % (42.0-75.2); PLATELET ESTIMATE NORMAL (NORMAL)
[2018-07-11 08:00] VITALS: BP 152/78; PULSE 96; TEMP 98.3
--- NOTE | 2018-07-11 09:31 | NUR ---
LYLE attended clinical rounds. The hospitalist discussed the plan of switching the patient back to some of her oral meds. SW to fax updates to [facility] and will continue to follow.
--- NOTE | 2018-07-11 10:07 | NUR ---
Assessment completed, alert/oriented, vital signs stable, SADDLE AND HARNESS MAKER has assisted with breakfast and she did fairly well/ NO signs of aspiration and ST guidlines followed closely, we are turning and changing positiong as often as patient will permit/ she refused to be turned at the last check, pressure ulcer to coccyx is covered with dressing, IV abx infusing, she dneies other needs at this time
[2018-07-11 11:22] VITALS: BP 139/80; PULSE 104; TEMP 98.5
[2018-07-11 15:57] VITALS: BP 154/90; PULSE 102; TEMP 98.4
--- NOTE | 2018-07-11 20:00 | NUR ---
PT IN BED WITH HOB AT 45 DEGREE ANGLE. FAMILY BY SIDE. PT HAS PAIN THAT IS 6/10 ACHING IN LEFT SCAPULA. GAVE NORCO 5/325 MG. CALLED KRISH WILLIS AND SHE ADVISED IT IS OKAY TO GIVE PO MED. BROKE PILL IN HALF AND PT HAD NO DIFFICULTIES SWALLOWING. PT HAS NO FURTHER NEEDS AT THIS TIME, CALL LIGHT WITHIN REACH.
[2018-07-11 20:34] VITALS: BP 138/80; PULSE 102; TEMP 99
[2018-07-11 23:54] VITALS: BP 162/88; PULSE 101; TEMP 98.4
--- NOTE | 2018-07-12 02:45 | NUR ---
PT HAS BEEN ASKED EVERY 2 HOURS OR LESS IF SHE WANTS TO BE REPOSITIONED AND PT REFUSES TO TURN. PT HAS BEEN MOVED IN BED UPWARD OR OVER TO LEFT MORE, ALSO, REPOSITION HANDS OFTEN REQUESTED BY PT. PT HAS MEPILEX ON COCCYX AREA THAT IS CLEAN, DRY, AND INTACT. PT THOUGHT THAT SHE WAS GOING TO HAVE A BOWEL MOVEMENT, BUT HAS NOT YET. PT HAS SUPERPUBIC CATHETER THAT IS DRAINING WITHOUT DIFFICULTY CLEAR YELLOW URINE. PT HAS HAD C/O PAIN, MAINLY IN HER LEFT SCAPULA AREA THAT IS CONSTANT. PT RESTING/SLEEPING AT THIS TIME, CALL LIGHT WITHIN REACH.
[2018-07-12 02:53] VITALS: BP 136/88; PULSE 97; TEMP 98.3
[2018-07-12 06:03] LABS: MEAN CELL VOLUME 92 fl (80.0-100.0); MEAN CORPUSCULAR HGB CONC 32 g/dl (33.0-37.0); MEAN PLATELET VOLUME 8.6 fl (7.4-10.4); PLATELET COUNT 391 K/mm3 (130-400); RED BLOOD COUNT 2.85 M/mm3 (4.10-5.30); REDCELL DISTRIBUTION WIDTH-CV 14.5 % (11.5-14.5)
[2018-07-12 06:04] LABS: HEMATOCRIT 26.2 % (37.0-47.0); HEMOGLOBIN 8.4 g/dl (12.5-16.0); MEAN CORPUSCULAR HEMOGLOBIN 29 pg (27.0-31.0)
[2018-07-12 06:17] LABS: CALCIUM 7.9 mg/dL (8.4-10.2); CREATININE, serum 0.3 (0.52-1.25)
--- NOTE | 2018-07-12 06:20 | NUR ---
CALLED KRISH WILLIS IN REFERENCE TO PT'S POTASSIUM BEING 2.8. KRISH WILLIS ADVISED THAT SHE WILL PUT HER IN FOR THE POTASSIUM PROTOCOL.
[2018-07-12 06:23] LABS: POTASSIUM 2.8 mmol/L (3.4-5.0)
[2018-07-12 07:14] LABS: BASOPHIL 1 % (0-2); EOSINOPHIL 4 % (0-4); LYMPHOCYTE 12 % (20.0-51.0); NEUTROPHILS 79 % (42.0-75.2); PLATELET ESTIMATE NORMAL (NORMAL)
[2018-07-12 07:55] VITALS: BP 157/77; PULSE 100; TEMP 98.1
--- NOTE | 2018-07-12 09:51 | NUR ---
Assessment complete.patient awake,a/ox3.c/o generalised pain.breathing even and unlabored.VSS.pottasium was 2.8,IV pottasium infusing at this time.patient received all meds.stage IV ulcer to coccyx.pt repositioned [id number] and prn.SCDs on.patient denies any needs at this time.call light in reach
[2018-07-12] MEDS ORDERED: CEFEPIME2 GM/100 M IV (11:52)
[2018-07-12] MEDS ORDERED: FERRO-TIME325 MG PO (11:54)
[2018-07-12] MEDS ORDERED: ZYVOX 600MG600 MG PO (11:54)
[2018-07-12 11:55] VITALS: BP 139/84; PULSE 102; TEMP 98.5
[2018-07-12] MEDS ORDERED: MELAT3MGTAB PO (11:58)
[2018-07-12] MEDS ORDERED: PROTONIX 40MG T40 MG PO (11:58)
[2018-07-12 15:27] VITALS: BP 147/84; PULSE 103; TEMP 98.6
--- NOTE | 2018-07-12 19:00 | NUR ---
PT RESTING IN BED AT THIS TIME.PT HAD A LARGE BM TODAY.REMAINS ON CONTACT PRECAUTION FOR MRSA.IVF INFUSING.REPOSITIONED Q2H.PATIENT DENIES ANY NEEDS AT THIS TIME.CALL LIGHT IN REACH
--- NOTE | 2018-07-12 19:02 | NUR ---
REPORT GIVEN TO SHAMA SUNSHINE.
[2018-07-12 19:16] VITALS: BP 138/95; PULSE 113; TEMP 98.5
--- NOTE | 2018-07-12 20:30 | NUR ---
Shift assessment complete. Pt resting in bed, awake, a&o, cooperative c cares. Pt reports chronic pain to hips/legs/buttock, rated 6/10; PRN pain medical recruiter per pt req. Pt denies other c/o at this time. Soft-touch call light in reach, pt demonstrates abiliity to push pad c the side of her face. Bed alarm on, will monitor.
[2018-07-12 23:41] VITALS: BP 118/79; PULSE 94; TEMP 97.7
[2018-07-13 03:03] VITALS: BP 143/83; PULSE 102; TEMP 97.6
--- NOTE | 2018-07-13 06:00 | NUR ---
Pt resting in bed, condition unchanged. Pain well controlled c PRN pain med upon request. Pt req 2t Bend this am. Continued q2 turn. Pt s needs at this time. Soft touch call light in reach.
[2018-07-13 07:12] LABS: BASO # 0.1 (0.0-0.2); BASO % 0.4 % (0.0-2.0); EOS # 0.6 (0.0-0.7); EOS % 4.2 % (0-4.0); GRAN # 10.6 (1.4-6.5); GRAN % 74.6 % (42.2-75.2); LYMPH # 0.9 (1.2-3.4); LYMPH % 6.6 % (20.0-51.0); MEAN CELL VOLUME 93 fl (80.0-100.0); MEAN CORPUSCULAR HGB CONC 32 g/dl (33.0-37.0); MEAN PLATELET VOLUME 8.3 fl (7.4-10.4); MONO # 1.3 (0.1-0.6); MONO % 9.3 % (1.7-9.3); PLATELET COUNT 395 K/mm3 (130-400); RED BLOOD COUNT 2.93 M/mm3 (4.10-5.30); REDCELL DISTRIBUTION WIDTH-CV 14.8 % (11.5-14.5)
[2018-07-13 07:19] LABS: CALCIUM 9.1 mg/dL (8.4-10.2); CREATININE, serum 0.35 (0.52-1.25)
[2018-07-13 07:24] LABS: HEMATOCRIT 27.2 % (37.0-47.0); HEMOGLOBIN 8.7 g/dl (12.5-16.0); MEAN CORPUSCULAR HEMOGLOBIN 30 pg (27.0-31.0)
[2018-07-13 08:26] VITALS: BP 134/79; PULSE 93; TEMP 97.9
[2018-07-13] MEDS ORDERED: ULTRAM 50MG TAB50 MG PO (08:30)
[2018-07-13] MEDS ORDERED: BD POSIFLUSH SF10 ML IV (08:34)
--- NOTE | 2018-07-13 10:09 | NUR ---
Assessment complete.patient awake,a/ox3.denies any pain or discomfort at this time.breathing even and unlabored.LSCTA.VSS.patient is afebrile.PICC to GILDA patent.IVF infusing.repositioned q2h.stage iv ulcer to coccyx.dressing in place.bilat lower extremities has 1+ pitting edema.SCDs on.booties to BLE.pt ate 80% of her breakfast.denies nay other needs at this time.will continue to monitor.call light in reach
[2018-07-13 11:16] VITALS: BP 134/79; PULSE 93; TEMP 97.9
--- NOTE | 2018-07-13 13:48 | NUR ---
PT DISCHARGE TO [facility] AT THIS TIME.ALL DISCHARGE PAPERWORK SENT WITH EMS.PICC DISCONTINUED.HYGIENE PROVIDED.PATIENT DENIES ANY NEEDS.ALL BELONGINGS TAKEN BY EMS.MOTHER ACCOMPANIED PATIENT.
--- NOTE | 2018-07-13 14:38 | NUR ---
CALLED [facility] TO GIVE REPORT AND WAS TOLD THAT PATIENT WAS GOING TO BE SENT BACK TO THE EMERGENCY DEPARTMENT TO GET A PHERIPHERAL LINE STARTED. AND SHAMA CENTENOGEOPHYSICS SCIENTIST NOTIFIED.
--- NOTE | 2018-07-13 15:33 | NUR ---
PATIENT CAME TO ED AND SHAMA CENTENO,LOGISTICS SUPPLY OFFICER STARTED A PERIPHERAL IV AND PATIENT RETURNED TO [facility] IN [facility].THIS RN CALLED REPORT TO SHAMA RIDDLE.NO OTHER NEEDS VOICED.
--- NOTE | 2018-07-13 16:20 | NUR ---
Patient returned to a room in the ER to have INT placed by this nurse. Patient arrived via stretcher; left patient on stretcher. On 2nd attempt placed 20 G to right forearm without difficulty. INT flushed without difficulty. Patient had a small bruise to area of instertion site. Patient tolerated procedure without an s/s of distress noted.
== END 2018-07-13 13:58 | DRG 698 ==
LOC: COL.ER 16:48 → MEDICAL 18:57 → ICU 07-08 12:18 → MEDICAL 07-10 11:22
PROVIDERS: Emergency Medicine; Nurse Practitioner; Physician Assistant; ADMIT Internal Medicine
PROC: 02HV33Z Insertion of Infusion Device into Superior Vena Cava, Percutaneous Approach (ICD-10-PCS; principal; 2018-07-08)
DX: T83.511A Infection and inflammatory reaction due to indwelling urethral catheter, initial encounter (principal); A41.9 Sepsis, unspecified organism; J96.01 Acute respiratory failure with hypoxia; J69.0 Pneumonitis due to inhalation of food and vomit; N39.0 Urinary tract infection, site not specified; G35 Multiple sclerosis; D64.9 Anemia, unspecified; E89.0 Postprocedural hypothyroidism; L89.229 Pressure ulcer of left hip, unspecified stage; Z66 Do not resuscitate; E87.6 Hypokalemia; M81.0 Age-related osteoporosis without current pathological fracture; N20.0 Calculus of kidney; F41.9 Anxiety disorder, unspecified; A49.02 Methicillin resistant Staphylococcus aureus infection, unspecified site; B96.4 Proteus (mirabilis) (morganii) as the cause of diseases classified elsewhere; K59.00 Constipation, unspecified; B96.5 Pseudomonas (aeruginosa) (mallei) (pseudomallei) as the cause of diseases classified elsewhere; M06.9 Rheumatoid arthritis, unspecified; Z79.891 Long term (current) use of opiate analgesic; Z79.2 Long term (current) use of antibiotics; Z85.850 Personal history of malignant neoplasm of thyroid
CPT/HCPCS: 99223-AI; 99232-AI; 99233-AI; 99239; C1751; C1892; C9113; J1200; J1650; J2020; J2270; J2405; J2543; J2916; J2920; J2930; J3010; J3480; J7030; J7040; P9016; Q2009

== ENCOUNTER 2018-07-15 12:26 | Outpatient (CLI) | payer BC, MEDICARE ==
[~2018-07-15] VITALS: Ht 157.5 cm; Wt 36.0 kg
[~2018-07-15 12:26] MED LIST changes: +AMOXICILLIN 8751 TAB PO; +BD POSIFLUSH SF10 ML IV; +CEFEPIME2 GM/100 M IV; +DIFLUCAN150 MG PO; +FERRO-TIME325 MG PO; +IPRATROPIUM BROM3 M1 IH; +MAG-OX 400400 MG/TAB PO; +MELAT3MGTAB PO; +NYSTATIN POWDER15 GM TOP; +PROTONIX 40MG T40 MG PO; +ZYVOX 600MG600 MG PO
[2018-07-15 13:00] VITALS: BP 107/58; PULSE 102; TEMP 98.2
--- NOTE | 2018-07-15 13:30 | NUR ---
pt recieved ativan po 0.5mg before procedure, pt requested med also, then consent signed.
--- NOTE | 2018-07-15 14:00 | NUR ---
pt assisted to bed with chair lift, 3 nurses. Nursing faciltiy states sent med list with pt, but unable to find, asked for med list to be faxed with order again. order sent, nurse states pt was discharged 2 days ago from hospital and med list has not changed.
--- NOTE | 2018-07-15 14:37 | NUR ---
Pt discharged per w/c with Max from [facility].
== END 2018-07-15 14:38 | disposition home or self-care (01) ==
LOC: EUO 12:26
DX: Z45.2 Encounter for adjustment and management of vascular access device (principal); J69.0 Pneumonitis due to inhalation of food and vomit; N39.0 Urinary tract infection, site not specified
CPT/HCPCS: C1751; C1892

== ENCOUNTER → 2018-07-22 | Outpatient (REF) ==
[2018-07-22 17:49] LABS: COLLECTION METHOD CATHETER
[2018-07-22 18:08] LABS: BUDDING YEAST Present /hpf; MUCOUS Present /lpf; PH 6 (5-8); URINE APPEARANCE Cloudy; URINE BACTERIA None Seen /hpf; URINE BILIRUBIN Negative (NEGATIVE); URINE BLOOD Negative (NEGATIVE); URINE COLOR Yellow; URINE GLUCOSE Negative (NEGATIVE); URINE KETONE Negative (NEGATIVE); URINE LEUKOCYTE ESTERASE 3+ (NEGATIVE); URINE NITRATE Negative (NEGATIVE); URINE PROTEIN(semi-quant) 2+ (NEGATIVE); URINE UROBILINOGEN Negative (NEGATIVE); URINE WBC >50 /hpf
== END ==
LOC: ZCOL.LAB 17:46
PROVIDERS: Internal Medicine
DX: Z01.89 Encounter for other specified special examinations (principal)

== ENCOUNTER → 2018-12-03 | Outpatient (CLI) | payer BC, MEDICARE ==
[2018-12-03 21:24] LABS: CALCIUM 9.3 mg/dL (8.4-10.2); CREATININE, serum 0.5 (0.52-1.25)
[2018-12-03 21:53] LABS: THYROID STIMULATING HORMONE 27.5 uIU/mL (0.465-4.680)
[2018-12-03 22:12] LABS: PHENYTOIN (DILANTIN) 9.1 ug/mL (10.0-20.0)
== END ==
LOC: ZCOL.LAB 17:27
PROVIDERS: Internal Medicine
DX: D64.9 Anemia, unspecified (principal); G40.909 Epilepsy, unspecified, not intractable, without status epilepticus; E55.9 Vitamin D deficiency, unspecified; R60.9 Edema, unspecified; E03.9 Hypothyroidism, unspecified

== ENCOUNTER → 2019-04-02 | Outpatient (CLI) | payer BC, MEDICARE ==
[2019-04-02 22:00] LABS: COLLECTION METHOD CATHETER
[2019-04-02 22:20] LABS: MUCOUS Present /lpf; PH 8 (5-8); URINE APPEARANCE Cloudy; URINE BACTERIA Moderate /hpf; URINE BILIRUBIN Negative (NEGATIVE); URINE BLOOD Negative (NEGATIVE); URINE CALCIUM OXALATE CRYSTAL Present /hpf; URINE COLOR Yellow; URINE GLUCOSE Negative (NEGATIVE); URINE KETONE Negative (NEGATIVE); URINE LEUKOCYTE ESTERASE 3+ (NEGATIVE); URINE NITRATE Positive (NEGATIVE); URINE PROTEIN(semi-quant) Negative (NEGATIVE); URINE UROBILINOGEN Negative (NEGATIVE); URINE WBC >50 /hpf
== END ==
LOC: ZCOL.LAB 19:27
PROVIDERS: Internal Medicine
DX: N39.0 Urinary tract infection, site not specified (principal)

== ENCOUNTER → 2019-05-28 | Outpatient (CLI) | payer BC, MEDICARE ==
[2019-05-28 16:36] LABS: CALCIUM 9.3 mg/dL (8.4-10.2); CREATININE, serum 0.53 (0.52-1.25); POTASSIUM 4.2 mmol/L (3.4-5.0)
== END ==
LOC: ZCOL.LAB 16:04
PROVIDERS: Internal Medicine
DX: E87.6 Hypokalemia (principal)

== ENCOUNTER → 2021-06-27 | Outpatient (CLI) | payer BC, MEDICARE ==
[2021-06-27 19:18] LABS: CREATININE, serum 0.51 mg/dL (0.57-1.11); POTASSIUM 4.2 mmol/L (3.5-4.5)
== END ==
LOC: ZCOL.LAB 18:51
PROVIDERS: Internal Medicine
DX: Z01.89 Encounter for other specified special examinations (principal)

== ENCOUNTER 2022-03-14 19:36 | Inpatient (IN) | payer BC, MEDICARE ==
[~2022-03-14] VITALS: Ht 157.5 cm; Wt 56.8 kg
[2022-03-14 20:07] LABS: COLLECTION METHOD CLEAN CATCH
[2022-03-14 20:30] LABS: MUCOUS Present (NOT PRESENT); SQUAMOUS EPITHELIAL 0-2 /hpf (0-10); URINE APPEARANCE Cloudy (CLEAR/HAZY); URINE BACTERIA Moderate /hpf (NONE SEEN); URINE COLOR Yellow (YELLOW)
[2022-03-14 20:31] LABS: URINE BLOOD TRACE-INTACT (NEGATIVE); URINE GLUCOSE Negative (NEGATIVE); URINE KETONE Negative (NEGATIVE); URINE NITRATE Negative (NEGATIVE); URINE PROTEIN(semi-quant) Negative (NEGATIVE); URINE UROBILINOGEN 0.2 (NEGATIVE)
[2022-03-14 20:36] LABS: BASO # 0.1 K/mm3 (0.0-0.2); BASO % 0.5 % (0.0-2.0); EOS % 0.1 % (0.0-4.0); GRAN # 9.1 K/mm3 (1.4-6.5); GRAN % 86.2 % (42.2-75.2); HEMATOCRIT 38.1 % (37.0-47.0); HEMOGLOBIN 12.8 g/dl (12.5-16.0); LYMPH # 0.3 K/mm3 (1.2-3.4); LYMPH % 3.1 % (20.0-51.0); MEAN CELL VOLUME 86 fl (80.0-100.0); MEAN CORPUSCULAR HEMOGLOBIN 29 pg (27-31); MEAN CORPUSCULAR HGB CONC 34 g/dl (33.0-37.0); MEAN PLATELET VOLUME 8.8 fl (7.4-10.4); MONO % 9.6 % (1.7-9.3); PLATELET COUNT 307 K/mm3 (130-400); RED BLOOD COUNT 4.44 M/mm3 (4.10-5.30)
[2022-03-14 20:57] LABS: ALBUMIN 3.9 gm/dL (3.4-4.8); BILIRUBIN,TOTAL 0.3 mg/dL (0.2-1.2); C-REACTIVE PROTEIN 6.96 mg/dL (0.00-0.50); CALCIUM 9.3 mg/dL (8.4-10.2); CREATININE, serum 0.56 mg/dL (0.57-1.11); POTASSIUM 3.6 mmol/L (3.5-4.5); TOTAL PROTEIN 8.6 gm/dL (6.2-8.1)
[2022-03-14 21:58] LABS: INR 1.1 (0.8-3.0); PROTHROMBIN TIME 12.4 SECONDS (9.7-12.8)
[2022-03-14 22:01] LABS: PARTIAL THROMBOPLASTIN TIME 37.2 SECONDS (26.0-37.0)
[2022-03-14] MEDS ORDERED: FENTANYL 12MCG TD (22:50)
[2022-03-14] MEDS ORDERED: FENTANYL 25 MCG TD (22:50)
[2022-03-14] MEDS ORDERED: SYNTHROID 0.10.15 MG PO (22:55)
[2022-03-14] MEDS ORDERED: LASIX 20MG TABL20 MG PO (22:55)
[2022-03-14] MEDS ORDERED: TRIMPEX100 MG PO (22:57)
[2022-03-15] VITALS (7 sets, daily range): BP systolic 102–155; BP diastolic 59–86; PULSE 95–116; TEMP 97.7–98.6
[2022-03-15 03:17] LABS: BASO # 0.1 K/mm3 (0.0-0.2); BASO % 0.4 % (0.0-2.0); GRAN # 10.3 K/mm3 (1.4-6.5); GRAN % 82.9 % (42.2-75.2); HEMOGLOBIN 12.1 g/dl (12.5-16.0); LYMPH # 0.6 K/mm3 (1.2-3.4); LYMPH % 5.1 % (20.0-51.0); MEAN CELL VOLUME 87 fl (80.0-100.0); MEAN CORPUSCULAR HEMOGLOBIN 29 pg (27-31); MEAN CORPUSCULAR HGB CONC 34 g/dl (33.0-37.0); MEAN PLATELET VOLUME 8.9 fl (7.4-10.4); MONO # 1.4 K/mm3 (0.1-0.6); MONO % 11.2 % (1.7-9.3); PLATELET COUNT 280 K/mm3 (130-400); RED BLOOD COUNT 4.11 M/mm3 (4.10-5.30); REDCELL DISTRIBUTION WIDTH-CV 14.1 % (11.5-14.5)
[2022-03-15 03:21] LABS: HEMATOCRIT 35.7 % (37.0-47.0)
[2022-03-15 03:32] LABS: CALCIUM 8.8 mg/dL (8.4-10.2); CREATININE, serum 0.48 mg/dL (0.57-1.11); MAGNESIUM 1.8 mg/dL (1.6-2.6)
[2022-03-15 03:47] LABS: PHENYTOIN (DILANTIN) 28.7 ug/mL (10.0-20.0)
--- NOTE | 2022-03-15 09:42 | NUR ---
LYLE confirmed with Miri at [facility] that she resides at their facility for long-term care in [facility]. The patient has End Stage Multiple Sclerosis. The patient's DPOA-HC is in EMR. It designates her , Aries, and mother, Ana Laura Gomez. SW attempted to contact the patient's . SW left him a voicemail. LYLE then contacted the patient's mother, Ana Laura. Ana Laura states that the patient's lives in [place] and is probably flying right now to [place]. She confirms the patient is from long-term care at [facility]. She shares that she just moved to [facility] living herself. LYLE inquired who the patient's PCP is. Ana Laura states she is unsure, but the patient would know. LYLE met with the patient. This SW had a difficult time understanding the patient. The patient states her PCP is Dr. Mclain. LYLE contacted and faxed updates to Miri at [facility]. Awaiting to hear back from the patient's * *Discharge plan: [facility]*
[2022-03-15] MEDS ORDERED: AYR SALINE GEL1 NS (12:15)
[2022-03-15] MEDS ORDERED: BENADRYL25 M2 PO (12:15)
[2022-03-15] MEDS ORDERED: STOOL SOFTENER100 M2 PO (12:16)
[2022-03-15] MEDS ORDERED: FLONASE NASAL S16 GM NS (12:17)
[2022-03-15] MEDS ORDERED: MIRALAX PA17 GM/Dose PO ×2 (12:17→12:19)
[2022-03-15] MEDS ORDERED: MUCINEX 60600 MG/TA1 PO (12:17)
--- NOTE | 2022-03-15 17:54 | NUR ---
PT IN BED IN LOWEST POSITION. TOUCH CALL LIGHT BY HEAD. MOVED TO SPECIALTY BED TODAY, TURNED Q2. BATHED AND INCONTINENT CARE PROVIDED. POTASSIUM REPLACED PER ORDER. NECTAR THICK LIQUIDS GIVEN PER RECOMMENDATION OF SPEECH THERAPY.
[2022-03-16 03:33] VITALS: BP 140/89; PULSE 112; TEMP 97.5
[2022-03-16 06:31] LABS: BASO # 0.1 K/mm3 (0.0-0.2); BASO % 0.5 % (0.0-2.0); EOS % 0.3 % (0.0-4.0); GRAN # 7.5 K/mm3 (1.4-6.5); GRAN % 76.6 % (42.2-75.2); HEMOGLOBIN 11.5 g/dl (12.5-16.0); LYMPH # 0.8 K/mm3 (1.2-3.4); LYMPH % 8.6 % (20.0-51.0); MEAN CELL VOLUME 88 fl (80.0-100.0); MEAN CORPUSCULAR HEMOGLOBIN 29 pg (27-31); MEAN CORPUSCULAR HGB CONC 33 g/dl (33.0-37.0); MEAN PLATELET VOLUME 9.9 fl (7.4-10.4); MONO # 1.3 K/mm3 (0.1-0.6); MONO % 13.6 % (1.7-9.3); PLATELET COUNT 290 K/mm3 (130-400); RED BLOOD COUNT 3.98 M/mm3 (4.10-5.30); REDCELL DISTRIBUTION WIDTH-CV 14.1 % (11.5-14.5)
[2022-03-16 06:33] LABS: HEMATOCRIT 35.2 % (37.0-47.0)
[2022-03-16 06:34] LABS: INR 1.2 (0.8-3.0); PROTHROMBIN TIME 13.4 SECONDS (9.7-12.8)
[2022-03-16 07:01] LABS: CREATININE, serum 0.46 mg/dL (0.57-1.11); PHENYTOIN (DILANTIN) 27.8 ug/mL (10.0-20.0); POTASSIUM 3.4 mmol/L (3.5-4.5)
[2022-03-16 07:51] VITALS: BP 153/79; PULSE 108; TEMP 98
[2022-03-16 10:57] VITALS: BP 149/76; PULSE 118; TEMP 97.9
--- NOTE | 2022-03-16 14:12 | NUR ---
SW faxed updates to [facility].
[2022-03-16 15:41] VITALS: BP 122/57; PULSE 82; TEMP 97.7
[2022-03-16 16:00] VITALS: BP 127/74; PULSE 118; TEMP 98.6
--- NOTE | 2022-03-16 16:01 | NUR ---
LOW BG NOTED THIS AM IN MORNING LABS. PT EASILY AROUSABLE AND ORIENTED, NO S/S OF HYPOGLYCEMIA. AFTER SNACKS/BREAKFAST BLOOD GLUCOSE UYEN TO NORMAL RANGE. DR. CASTELLANOS AWARE, HYPOGLYCEMIA PROTOCOL ORDERED.
[2022-03-16 20:56] VITALS: BP 129/80; PULSE 112; TEMP 97.7
[2022-03-17] VITALS (7 sets, daily range): BP systolic 110–154; BP diastolic 53–92; PULSE 70–124; TEMP 97.7–98.8
[2022-03-17 07:03] LABS: BASO % 0.2 % (0.0-2.0); EOS % 0.2 % (0.0-4.0); GRAN # 8.3 K/mm3 (1.4-6.5); GRAN % 78.1 % (42.2-75.2); HEMOGLOBIN 11.3 g/dl (12.5-16.0); LYMPH # 0.8 K/mm3 (1.2-3.4); LYMPH % 7.2 % (20.0-51.0); MEAN CELL VOLUME 88 fl (80.0-100.0); MEAN CORPUSCULAR HEMOGLOBIN 29 pg (27-31); MEAN CORPUSCULAR HGB CONC 33 g/dl (33.0-37.0); MEAN PLATELET VOLUME 10.1 fl (7.4-10.4); MONO # 1.5 K/mm3 (0.1-0.6); MONO % 13.8 % (1.7-9.3); PLATELET COUNT 270 K/mm3 (130-400); RED BLOOD COUNT 3.89 M/mm3 (4.10-5.30)
[2022-03-17 07:09] LABS: HEMATOCRIT 34.1 % (37.0-47.0)
[2022-03-17 07:12] LABS: PROTHROMBIN TIME 34.9 SECONDS (9.7-12.8)
[2022-03-17 07:17] LABS: CALCIUM 9.5 mg/dL (8.4-10.2); CREATININE, serum 0.48 mg/dL (0.57-1.11)
[2022-03-17 07:20] LABS: POTASSIUM 2.8 mmol/L (3.5-4.5)
[2022-03-17 07:42] LABS: TSH w REFLEX 0.327 uIU/mL (0.350-4.940)
--- NOTE | 2022-03-17 07:45 | NUR ---
Warfarin Follow-up Pharmacy Note Current regimen: Warfarin 5 mg po qHS LABS: INR 3 (increased from 1.2 yesterday) Changes in therapy: Will hold Warfarin tonight and recheck INR tomorrow to determine when to resume Warfarin at lower dose. Pharmacy will continue to closely monitor.
[2022-03-17 07:51] LABS: PHENYTOIN (DILANTIN) 21.2 ug/mL (10.0-20.0)
--- NOTE | 2022-03-17 08:32 | NUR ---
Pt awake, sitting up in bed. Morning medications administered per eMAR. Shift assessment completed. VSS. Telemetry remains on. Fentanyl patch remains on L upper chest. Suprapubic catheter remains in place. INT in L hand patent, no edema, no redness. INT in R hand patent, no edema, no redness. Boots on BLE. Pt in high nunez's position; Juan,PCT notified pt needing assistance with feeding. Pt remains on contact precautions.
--- NOTE | 2022-03-17 11:00 | NUR ---
KAYCE Sheets notified of urine cx results.
--- NOTE | 2022-03-17 14:58 | NUR ---
The patient's , Ed, arrived to the hospital. He traveled here from [place]. LYLE met with the patient, Ed, and other family members. Ed confirms the plan for the patient to return back to [facility] upon discharge. Ed requests to speak to the doctor or PA for an update. SW notified the PA. LYLE faxed updates to Neo at [facility].
[2022-03-18 03:05] VITALS: BP 153/78; PULSE 114; TEMP 98.3
[2022-03-18 06:32] LABS: BASO % 0.2 % (0.0-2.0); EOS % 0.2 % (0.0-4.0); GRAN # 10.2 K/mm3 (1.4-6.5); GRAN % 82.1 % (42.2-75.2); HEMOGLOBIN 11.7 g/dl (12.5-16.0); LYMPH # 0.7 K/mm3 (1.2-3.4); LYMPH % 5.5 % (20.0-51.0); MEAN CELL VOLUME 88 fl (80.0-100.0); MEAN CORPUSCULAR HEMOGLOBIN 29 pg (27-31); MEAN CORPUSCULAR HGB CONC 33 g/dl (33.0-37.0); MEAN PLATELET VOLUME 9.3 fl (7.4-10.4); MONO # 1.4 K/mm3 (0.1-0.6); MONO % 11.6 % (1.7-9.3); PLATELET COUNT 289 K/mm3 (130-400); RED BLOOD COUNT 4.02 M/mm3 (4.10-5.30); REDCELL DISTRIBUTION WIDTH-CV 13.7 % (11.5-14.5)
[2022-03-18 06:34] LABS: HEMATOCRIT 35.3 % (37.0-47.0)
[2022-03-18 06:35] LABS: INR 2.5 (0.8-3.0); PROTHROMBIN TIME 28.7 SECONDS (9.7-12.8)
[2022-03-18 06:46] LABS: CALCIUM 9.6 mg/dL (8.4-10.2); CREATININE, serum 0.47 mg/dL (0.57-1.11); POTASSIUM 3.5 mmol/L (3.5-4.5)
--- NOTE | 2022-03-18 07:44 | NUR ---
0652 LAB CALLED WITH A BLOOD SUGAR OF 66. THE PATIENT ATE AN ENTIRE PUDDING.
[2022-03-18 08:08] VITALS: BP 142/88; PULSE 123; TEMP 97.6
[2022-03-18 12:12] VITALS: BP 105/85; PULSE 116; TEMP 97.8
[2022-03-18 15:45] VITALS: BP 140/90; PULSE 115; TEMP 97.3
--- NOTE | 2022-03-18 18:18 | NUR ---
PATIENT REPOSITIONED Q2H AND OFFERED SNACKS/DRINKS. PATIENT DENIES ANY COMPLAINTS OF PAIN. PATIENT CLEANED AND REPOSITIONED AGAIN AT THIS TIME. SOFT FORMED BM NOTED. CATHETER CARE PROVIDED. PATIENT DENIES ANY OTHER NEEDS AT THIS TIME.
[2022-03-18 20:15] VITALS: BP 151/79; PULSE 107; TEMP 98.1
[2022-03-18 23:21] VITALS: BP 152/78; PULSE 102; TEMP 97.9
[2022-03-19 03:09] VITALS: BP 113/78; PULSE 93; TEMP 97.2
--- NOTE | 2022-03-19 03:43 | NUR ---
Pt assessment incomplete around 2044 due to pain expressed by pt every time she had her extremities moved to a different position. Sitting up at 90 degrees in bed. A&O x4 with speech difficult to understand due to weakness. Mouth was moisturized and drink was offered. Suprapubic catheter in place with dark yellow urine in bag. L hand and R hand INTs are CDI. Tele on. BUE resting on pillows. PO medications administered per emar. Boots and SCDs are in place. Call light placed next to pt's head.
[2022-03-19 06:31] LABS: HEMOGLOBIN 11.2 g/dl (12.5-16.0); MEAN CELL VOLUME 90 fl (80.0-100.0); MEAN CORPUSCULAR HEMOGLOBIN 29 pg (27-31); MEAN CORPUSCULAR HGB CONC 32 g/dl (33.0-37.0); MEAN PLATELET VOLUME 9.6 fl (7.4-10.4); PLATELET COUNT 303 K/mm3 (130-400); RED BLOOD COUNT 3.89 M/mm3 (4.10-5.30); REDCELL DISTRIBUTION WIDTH-CV 13.8 % (11.5-14.5)
[2022-03-19 06:34] LABS: HEMATOCRIT 34.8 % (37.0-47.0); INR 2.6 (0.8-3.0)
[2022-03-19 06:45] LABS: CALCIUM 9.5 mg/dL (8.4-10.2); CREATININE, serum 0.5 mg/dL (0.57-1.11); POTASSIUM 3.4 mmol/L (3.5-4.5)
--- NOTE | 2022-03-19 06:50 | NUR ---
Lab called this ORDER DEPARTMENT SUPERVISOR and reported BG of 62. Breakfast tray was available at the moment and requested PCT to assist pt to eat. Report given to SHAMA Rocha. BG to be rechecked in 15 min.
[2022-03-19 07:24] VITALS: BP 143/73; PULSE 109; TEMP 98.4
[2022-03-19 08:10] LABS: BAND 4 % (0-10); EOSINOPHIL 1 % (0-4); HYPOCHROMIA 1+; LYMPHOCYTE 9 % (20.0-51.0); NEUTROPHILS 77 % (42.0-75.2); PLATELET ESTIMATE NORMAL (NORMAL)
[2022-03-19 12:00] VITALS: BP 131/81; PULSE 101; TEMP 97.6
--- NOTE | 2022-03-19 12:59 | NUR ---
Fabric Awning Repairer rounds: Fabric Awning Repairer visit attempted. Two nurses were adjusting Patient's bed so that it would reposition Patient. The bed was not cooperating. No ledger poster visit completed.
[2022-03-19 15:56] VITALS: BP 137/81; PULSE 103; TEMP 98.2
--- NOTE | 2022-03-19 18:00 | NUR ---
PT HAS HAD AN UNEVENTFUL DAY. APPETITE IS POOR. PT DID AGREE TO A FEW BITES OF DINNER AND IS CURRENTLY WATCHING THE SUPERBOWL. DENIES NEEDS. CALL LIGHT IN PLACE BY HEAD.
--- NOTE | 2022-03-19 18:51 | NUR ---
PT SHIFT REPORT GIVEN TO SHAMA KWON
[2022-03-19 19:44] VITALS: BP 154/96; PULSE 123; TEMP 97.4
[2022-03-19 23:12] VITALS: BP 133/87; PULSE 107; TEMP 98
--- NOTE | 2022-03-20 02:11 | NUR ---
Pt sitting up at ninety degrees for shift assessment around 2014. Requested to get repositioned in bed and to move her arms in a different position. SCDs and boots on. All medication given per emar. Denies any pain or discomfort at this time. mouth and lips got moisturized. L hand and R hand INTs are CDI. Suprapubic catheter in place with dark yellow urine in bag. No other needs or concerns were reported. Belongings and call light in place.
[2022-03-20 03:09] VITALS: BP 126/79; PULSE 101; TEMP 98.2
[2022-03-20 06:31] LABS: BASO % 0.4 % (0.0-2.0); EOS # 0.2 K/mm3 (0.0-0.7); EOS % 1.8 % (0.0-4.0); GRAN # 7.3 K/mm3 (1.4-6.5); GRAN % 73.9 % (42.2-75.2); HEMOGLOBIN 12.3 g/dl (12.5-16.0); LYMPH # 0.9 K/mm3 (1.2-3.4); LYMPH % 9.1 % (20.0-51.0); MEAN CELL VOLUME 86 fl (80.0-100.0); MEAN CORPUSCULAR HEMOGLOBIN 29 pg (27-31); MEAN CORPUSCULAR HGB CONC 34 g/dl (33.0-37.0); MEAN PLATELET VOLUME 9.6 fl (7.4-10.4); MONO # 1.4 K/mm3 (0.1-0.6); MONO % 13.8 % (1.7-9.3); PLATELET COUNT 364 K/mm3 (130-400); RED BLOOD COUNT 4.26 M/mm3 (4.10-5.30); REDCELL DISTRIBUTION WIDTH-CV 13.3 % (11.5-14.5)
[2022-03-20 06:35] LABS: HEMATOCRIT 36.6 % (37.0-47.0)
[2022-03-20 06:46] LABS: INR 3.1 (0.8-3.0); PROTHROMBIN TIME 36.3 SECONDS (9.7-12.8)
[2022-03-20 06:54] LABS: CALCIUM 9.5 mg/dL (8.4-10.2); CREATININE, serum 0.47 mg/dL (0.57-1.11); PHENYTOIN (DILANTIN) 9.2 ug/mL (10.0-20.0); POTASSIUM 3.3 mmol/L (3.5-4.5)
--- NOTE | 2022-03-20 07:00 | NUR ---
PT RESTING IN BED. PT HAS SOFT TOUCH CALL LIGHT. PT ALL EXTREMETIES ELEVATED. PT INSTRUCTED TO CALL WITH ALL NEEDS.
--- NOTE | 2022-03-20 07:21 | NUR ---
Pt got pericare done this morning with incontinent BM. Pt got repositioned Q2h, and every time she requested it. Call light within reach.
[2022-03-20 08:08] VITALS: BP 121/74; PULSE 103; TEMP 98
[2022-03-20] MEDS ORDERED: TOPROL XL 25MG25 MG PO (08:09)
[2022-03-20] MEDS ORDERED: COUMADIN 1MG1 MG/TAB PO (10:31)
[2022-03-20 11:33] VITALS: BP 127/76; PULSE 107; TEMP 97.9
--- NOTE | 2022-03-20 11:47 | NUR ---
The patient is to tentatively discharge today, pending ID's recs. LYLE notified and faxed updates to Neo at [facility]. LYLE contacted and updated the patient's , Ed. Ed is in agreement to the plan. SW read the IM form outloud to Ed over the phone. Ed verbalized understanding and agreement to discharge today. He gave SW approval to sign the form on his behalf and requested that SW email him a copy. SW emailed Ed a copy of the form.
--- NOTE | 2022-03-20 14:23 | NUR ---
EVALUATED PT AND STATED PT NEEDS 10 MORE DAYS IV ABX. HOSPITALIST NOTIFIED. WILL PLACE PICC LINE AND [facility] SW NOTIFIED.
--- NOTE | 2022-03-20 14:30 | NUR ---
Patient was seen via Telehealth visit by Dr. Austin Chavez, Infectious Disease. Patient agreed to visit. Nurse and 2 nursing center tutor present during visit. Patient questions answered by Dr. Chavez during the visit. There were no technical issues or concerns during the visit.
[2022-03-20] MEDS ORDERED: MAXIPIME2 GM IJ (14:37)
--- NOTE | 2022-03-20 14:53 | NUR ---
ID is recommending IV Cefepime every 12 hours. The patient is to have a PICC line placed now. LYLE notified and faxed the ID note to Neo at [facility]. Neo states that they will not be able to take the patient today now, but can tomorrow morning. LYLE notified the clinical team. LYLE contacted and updated the patient's , Ed.
[2022-03-20 16:05] VITALS: BP 122/72; PULSE 106; TEMP 98
[2022-03-20 19:14] VITALS: BP 131/82; PULSE 108; TEMP 98.6
--- NOTE | 2022-03-20 22:00 | NUR ---
Patient resting quietly in bed watching TV. Vitals within normal limits. She denies pain or discomfort. Refuses repositioning when offered by staff during assessment. Oral hygiene provided. Suprapubic hopson to dependent drainage.
[2022-03-20 23:03] VITALS: BP 132/82; PULSE 102; TEMP 98.2
[2022-03-21 03:42] VITALS: BP 130/69; PULSE 100; TEMP 98
--- NOTE | 2022-03-21 06:00 | NUR ---
Patient alert in room happy for going to [facility]. Cooperative taking medications. Assessment completed. Telemetry in place, NSR. Call light next to head. Continue monitoring.
[2022-03-21 07:13] VITALS: BP 136/83; PULSE 96; TEMP 98
--- NOTE | 2022-03-21 09:25 | NUR ---
The patient is to discharge today, 03/21, back to [facility] for a skilled stay. Transportation was scheduled around 1130, via [facility]. SW attempted to contact the patient's , Ed, to update. His number now says it is disconnected or no longer in service. SW contacted the patient's mother, Ana Laura, and updated her. Ana Laura states that she will get in contact with Ed and update him. No additional needs at this time.
--- NOTE | 2022-03-21 11:30 | NUR ---
Report given to Aaron SESAY in [facility]. Telemetry was discontinued. [facility] by BAIT PAINTER to the entrance.
== END 2022-03-21 11:30 | DRG 698 ==
LOC: COL.ER 19:36 → MEDICAL 21:16
PROVIDERS: Family Medicine; Internal Medicine Interventional Cardiology; Physician Assistant; Student in an Organized Health Care Education/Training Program; ADMIT Hospitalist
PROC: 02HV33Z Insertion of Infusion Device into Superior Vena Cava, Percutaneous Approach (ICD-10-PCS; principal; 2022-03-20)
DX: T83.511A Infection and inflammatory reaction due to indwelling urethral catheter, initial encounter (principal); G82.50 Quadriplegia, unspecified; G93.41 Metabolic encephalopathy; I48.92 Unspecified atrial flutter; I48.91 Unspecified atrial fibrillation; N39.0 Urinary tract infection, site not specified; M06.9 Rheumatoid arthritis, unspecified; G35 Multiple sclerosis; Z66 Do not resuscitate; Z20.822 Contact with and (suspected) exposure to COVID-19; E86.0 Dehydration; E89.0 Postprocedural hypothyroidism; G40.909 Epilepsy, unspecified, not intractable, without status epilepticus; I95.9 Hypotension, unspecified; E87.6 Hypokalemia; B96.5 Pseudomonas (aeruginosa) (mallei) (pseudomallei) as the cause of diseases classified elsewhere; F41.9 Anxiety disorder, unspecified; F32.A Depression, unspecified; G89.29 Other chronic pain; N31.9 Neuromuscular dysfunction of bladder, unspecified; K59.09 Other constipation; Z79.890 Hormone replacement therapy; Z90.710 Acquired absence of both cervix and uterus; Z85.850 Personal history of malignant neoplasm of thyroid; Y84.6 Urinary catheterization as the cause of abnormal reaction of the patient, or of later complication, without mention of misadventure at the time of the procedure; Y92.89 Other specified places as the place of occurrence of the external cause
CPT/HCPCS: C1751; C1892; J0692; J0696; J1644; J1650; J1956; J3475; J3480; J7030

== ENCOUNTER → 2022-04-03 | Outpatient (REF) | payer BC, MEDICARE ==
[~2022-04-03] MED LIST changes: +AYR SALINE GEL1 NS; +BENADRYL25 M2 PO; +COUMADIN 1MG1 MG/TAB PO; +FENTANYL 12MCG TD; +FENTANYL 25 MCG TD; +FLONASE NASAL S16 GM NS; +LASIX 20MG TABL20 MG PO; +MAXIPIME2 GM IJ; +MIRALAX PA17 GM/Dose PO; +MUCINEX 60600 MG/TA1 PO; +STOOL SOFTENER100 M2 PO; +SYNTHROID 0.10.15 MG PO; +TOPROL XL 25MG25 MG PO; +TRIMPEX100 MG PO
[2022-04-03 11:44] LABS: BASO # 0.1 K/mm3 (0.0-0.2); EOS # 0.4 K/mm3 (0.0-0.7); EOS % 5.2 % (0.0-4.0); GRAN # 4.5 K/mm3 (1.4-6.5); GRAN % 65.3 % (42.2-75.2); HEMATOCRIT 32.1 % (37.0-47.0); HEMOGLOBIN 10.4 g/dl (12.5-16.0); LYMPH # 0.9 K/mm3 (1.2-3.4); LYMPH % 13.5 % (20.0-51.0); MEAN CELL VOLUME 89 fl (80.0-100.0); MEAN CORPUSCULAR HEMOGLOBIN 29 pg (27-31); MEAN CORPUSCULAR HGB CONC 32 g/dl (33.0-37.0); MEAN PLATELET VOLUME 9.7 fl (7.4-10.4); MONO % 13.7 % (1.7-9.3); PLATELET COUNT 304 K/mm3 (130-400); REDCELL DISTRIBUTION WIDTH-CV 14.4 % (11.5-14.5)
[2022-04-03 11:55] LABS: CREATININE, serum 0.47 mg/dL (0.57-1.11); PHENYTOIN (DILANTIN) 13.5 ug/mL (10.0-20.0); POTASSIUM 4.2 mmol/L (3.5-4.5)
== END ==
LOC: ZCOL.LAB 11:04
PROVIDERS: Internal Medicine
DX: D64.9 Anemia, unspecified (principal); I40.0 Infective myocarditis; G40.909 Epilepsy, unspecified, not intractable, without status epilepticus